=== PATIENT | female | born 1990 | race Caucasian/White ===

== ENCOUNTER 2016-10-03 20:10 | Emergency (ER) | payer OTHER ==
[~2016-10-03] VITALS: Ht 165.1 cm; Wt 70.0 kg
[2016-10-03 20:17] VITALS: Ht 165.1 cm; Wt 70.0 kg
[2016-10-03] MEDS ORDERED: IBUP-1542 PO ×2 (21:21→22:00)
--- NOTE | 2016-10-03 21:22 | ERD ---
ER Documentation Chief Complaint Date/Time DATE: 10/03/16 TIME: 21:19 Chief Complaint headache x 4 days HPI 26-year-old female presents here in emergency department for complaints of headache or 4 days. Patient is complaining headache as throbbing pain, 4/10 scale, mildly better after taking ibuprofen at home. Patient did not have any nausea vomiting. Patient denies any fever or chills. Patient describes the headache as throbbing pain, 4/10 scale, radiates from the back of the head to the neck area, patient is complaining of pain in the neck area when movement, patient denies any dizziness. Patient denies any blurry vision. Patient denies any focal weakness numbness or tingling. Patient denies any neck rigidity. Patient denies any fever or chills. ROS All systems reviewed and are negative except as per history of present illness. Medications Home Meds Reported Medications Ibuprofen* (Motrin*) Unknown Strength Tab, PO Q6H Y for PAIN AND OR ELEVATED TEMP, #30 TAB 10/03/16 Allergies Allergies: Coded Allergies: No Known Drug Allergies (Verified Allergy, Unknown, 10/03/16) PMhx/Soc History of Surgery: Yes (; LEEP PROCEDURE) Anesthesia Reaction: No Hx Neurological Disorder: No Hx Respiratory Disorders: No Hx Cardiac Disorders: No Hx Psychiatric Problems: No Hx Miscellaneous Medical Probl: No Hx Alcohol Use: No Hx Substance Use: No Hx Tobacco Use: No Smoking Status: Never smoker FmHx Family History: No coronary disease, No diabetes, No other Physical Exam Vitals Vital Signs Date Time Temp Pulse Resp B/P Pulse Ox O2 Delivery O2 Flow Rate FiO2 10/03/16 20:17 98.0 72 20 128/57 100 Physical Exam GENERAL: The patient is well developed and appropriate for usual state of health, in no apparent distress. CHEST: Clear to auscultation bilaterally. There are no rales, wheezes or rhonchi. HEART: Regular rate and rhythm. No murmurs, clicks, rubs or gallops. No S3 or S4. ABDOMEN: Soft, nontender and nondistended. Good bowel sounds. No rebound or guarding. No gross peritonitis. No gross organomegaly or masses. No Schwartz sign or McBurney point tenderness. BACK: No midline or flank tenderness. Noted muscle spasms on the paraspinal aspect of the cervical spine. EXTREMITIES: Equal pulses bilaterally. There is no peripheral clubbing, cyanosis or edema. No focal swelling or erythema. Full range of motion. Grossly neurovascularly intact. NEURO: Alert and oriented. Cranial nerves 2-12 intact. Motor strength in all 4 extremities with 5/5 strength. Sensation grossly intact. Normal speech and gait. Negative pronator drift. Negative Bruzinski and Kernig sign. Negative Romberg sign. SKIN: There is no apparent rash or petechia. The skin is warm and dry. HEMATOLOGIC AND LYMPHATIC: There is no evidence of excessive bruising or lymphedema. No gross cervical, axillary, or inguinal lymphadenopathy. Results 24 hrs PROCEDURE: CT Brain without contrast. CLINICAL INDICATION: Headache and dizziness. TECHNIQUE: A CT of the brain without contrast was performed utilizing axial sections from the skull base through the vertex. The patient was scanned without intravenous contrast enhancement. Sagittal and coronal reformatted images were obtained using the data from the axial images. Total exam DLP is 720.23 mGy-cm. CTDIvol is 45.01 mGy. One or more of the following dose reduction techniques were used: Automated exposure control, adjustment of the mA and/or kV according to patient size, use of iterative reconstruction technique. COMPARISON: None available FINDINGS: There is normal sampson-white matter differentiation. The ventricles and cisterns are normal. There is no intracranial hemorrhage or space-occupying lesion. There is no skull fracture or lytic lesion. IMPRESSION: 1. Normal noncontrast CT scan of the brain. 2. No intracranial hemorrhage. RPTAT: QQ .Rj Ventura MD, MD Date Time Electronically viewed and signed by .Rj eVntura MD, on 10/03/2016 21:43 .R/ Procedures/MDM Medical Decision Making: Patient symptoms of headache most likely is from tension headache, patient's also having some neck pain consistent with neck muscle strain. No trauma. There is low suspicion for neurological emergencies at this time since patients neurologic exam is normal. Patient did not have any altered level consciousness, vomiting, changes in balance or memory and did not have any head injury. Patients CT scan of the head does not show any neurological emergencies at this time. Rx: Flexeril, [place] severe pain, Ibuprofen mild to moderate pain Departure Diagnosis: Primary Impression: Headache Headache type: unspecified Headache chronicity pattern: acute headache Intractability: not intractable Qualified Code: R51 - Acute nonintractable headache, unspecified headache type Additional Impression: Neck muscle strain Encounter type: initial encounter Qualified Code: S16.1XXA - Neck muscle strain, initial encounter Condition: Stable Patient Instructions: Neck Spasm, No Trauma, Self-Care for Headaches GOGO PEREZ NP Oct 03, 2016 21:22
--- NOTE | 2016-10-03 21:43 | RADRPT ---
PROCEDURE: CT Brain without contrast. CLINICAL INDICATION: Headache and dizziness. TECHNIQUE: A CT of the brain without contrast was performed utilizing axial sections from the skul l base through the vertex. The patient was scanned without intravenous contrast enhancement. Sagitta l and coronal reformatted images were obtained using the data from the axial images. Total exam DLP is 720.23 mGy-cm. CTDIvol is 45.01 mGy. One or more of the following dose reduction techniques we re used: Automated exposure control, adjustment of the mA and/or kV according to patient size, use o f iterative reconstruction technique. COMPARISON: None available FINDINGS: There is normal sampson-white matter differentiation. The ventricles and cisterns are normal. There is no intracranial hemorrhage or space-occupying lesion. There is no skull fracture or lytic lesion. IMPRESSION: 1. Normal noncontrast CT scan of the brain. 2. No intracranial hemorrhage. RPTAT: QQ .Rj Ventura MD, MD Date Time Electronically viewed and signed by .Rj Ventura MD, MD on 10/03/2016 21:43 .R/
[2016-10-03] MEDS ORDERED: HYDR-906 PO (22:00)
[2016-10-03] MEDS ORDERED: CYCL-319 PO (22:00)
[2016-10-03 22:25] VITALS: BP 115/73; PULSE 64; RESP 16
== END 2016-10-03 22:27 | disposition home or self-care (01) ==
LOC: FTE 20:10
DX: S16.1XXA Strain of muscle, fascia and tendon at neck level, initial encounter (principal); X58.XXXA Exposure to other specified factors, initial encounter; Y92.9 Unspecified place or not applicable
CPT/HCPCS: 70450; Z7502

== ENCOUNTER 2017-12-27 09:16 | Emergency (ER) | END 2017-12-27 10:16 | disposition home or self-care (01) ==